=== PATIENT | female | born 1980 | race Caucasian/White ===

== ENCOUNTER 2018-07-25 10:46 | Emergency (ER) | payer MEDICAID ==
[~2018-07-25] VITALS: Ht 165.1 cm; Wt 102.0 kg
[~2018-07-25 10:46] MED LIST: ALBU6.7H INH; NAPR-1154 PO
[2018-07-25] MEDS ORDERED: HYDROcodone/acetaminophen 10/325mg tab PO ONE (12:05)
[2018-07-25 12:27] LABS: BASOPHILS % (AUTO) 0.4 % (0-1); EOSINOPHILS # (AUTO) 0.1 X10'3 (0-0.9); EOSINOPHILS % (AUTO) 1.6 % (0-6); HEMATOCRIT 39.6 % (35.0-45.0); HEMOGLOBIN 13.5 g/dl (12.0-16.0); LYMPHOCYTES # (AUTO) 2.2 X10'3 (1.1-4.8); LYMPHOCYTES % (AUTO) 29.5 % (21-51); MEAN CORPUSCULAR HEMOGLOBIN 29.3 PG (27.0-31.0); MEAN CORPUSCULAR HGB CONC 34.1 % (33.0-36.5); MEAN CORPUSCULAR VOLUME 86.1 FL (78-98); MEAN PLATELET VOLUME 8.4 FL (7.4-10.4); MONOCYTES # (AUTO) 0.6 X10'3 (0-0.9); MONOCYTES % (AUTO) 7.6 % (2-12); NEUTROPHILS # (AUTO) 4.6 X10'3 (1.8-7.7); NEUTROPHILS % (AUTO) 60.9 % (42-75); PLATELET COUNT 314 X10'3 (140-440); RED CELL DISTRIBUTION WIDTH 12.9 % (11.5-14.5); WHITE BLOOD COUNT 7.5 X10'3 (4.5-11.0)
[2018-07-25 13:10] VITALS: BP 117/66
[2018-07-25] MEDS ORDERED: ACET1TAB12 PO (14:30)
== END 2018-07-25 14:47 | disposition home or self-care (01) ==
LOC: ER 10:46
DX: D25.9 Leiomyoma of uterus, unspecified (principal); Z88.8 Allergy status to other drugs, medicaments and biological substances
CPT/HCPCS: 36415; 76856; 85025; 99285

== ENCOUNTER 2019-04-28 18:06 | Emergency (ER) | payer MEDICAID ==
[~2019-04-28] VITALS: Ht 165.1 cm; Wt 108.0 kg
[~2019-04-28 18:06] MED LIST changes: +ACET1TAB12 PO
[2019-04-28] MEDS ORDERED: LORazepam 1 MG tablet PO ONE (18:25)
[2019-04-28 19:18] LABS: BASOPHILS # (AUTO) 0.1 X10'3 (0-0.2); BASOPHILS % (AUTO) 0.7 % (0-1); EOSINOPHILS # (AUTO) 0.2 X10'3 (0-0.9); EOSINOPHILS % (AUTO) 2.4 % (0-6); HEMATOCRIT 38.8 % (35.0-45.0); HEMOGLOBIN 13.3 g/dl (12.0-16.0); LYMPHOCYTES # (AUTO) 3.1 X10'3 (1.1-4.8); LYMPHOCYTES % (AUTO) 40.1 % (21-51); MEAN CORPUSCULAR HEMOGLOBIN 29.6 PG (27.0-31.0); MEAN CORPUSCULAR HGB CONC 34.2 g/dL (33.0-36.5); MEAN CORPUSCULAR VOLUME 86.5 FL (78-98); MEAN PLATELET VOLUME 9.1 FL (7.4-10.4); MONOCYTES # (AUTO) 0.7 X10'3 (0-0.9); MONOCYTES % (AUTO) 8.4 % (2-12); NEUTROPHILS # (AUTO) 3.7 X10'3 (1.8-7.7); NEUTROPHILS % (AUTO) 48.4 % (42-75); PLATELET COUNT 314 X10'3 (140-440); RED BLOOD COUNT 4.49 X10'6 (4.20-5.60); RED CELL DISTRIBUTION WIDTH 12.6 % (11.5-14.5); WHITE BLOOD COUNT 7.7 X10'3 (4.5-11.0)
[2019-04-28 19:41] LABS: ALANINE AMINOTRANSFERASE 66 U/L (12-78); ALBUMIN 3.9 G/DL (3.4-5.0); ALBUMIN/GLOBULIN RATIO 1.1 (1.1-1.5); ALKALINE PHOSPHATASE 59 IU/L (46-116); ANION GAP 7 (8-16); ASPARTATE AMINO TRANSFERASE 32 U/L (10-37); BILIRUBIN,TOTAL 0.4 MG/DL (0.1-1.0); BLOOD UREA NITROGEN 12 MG/DL (7-18); BUN/CREATININE RATIO 17.6 (6.6-38.0); CALCIUM 9.2 MG/DL (8.5-10.1); CHLORIDE 105 MMOL/L (99-107); CREATININE 0.68 MG/DL (0.40-0.90); GLUCOSE 112 MG/DL (70-104); POTASSIUM 4.3 MMOL/L (3.5-5.1); SODIUM 139 MMOL/L (135-145); TOTAL CARBON DIOXIDE 26.6 MMOL/L (24-32); TOTAL PROTEIN 7.5 G/DL (6.4-8.2); eGFR > 90 ML/MIN
[2019-04-28 20:16] VITALS: BP 134/80
== END 2019-04-28 20:18 | disposition home or self-care (01) ==
LOC: ER 18:07
DX: I10 Essential (primary) hypertension (principal); F41.9 Anxiety disorder, unspecified; Z88.8 Allergy status to other drugs, medicaments and biological substances; Z79.899 Other long term (current) drug therapy
CPT/HCPCS: 36415; 71045; 80053; 84484; 85025; 93005; 99284

== ENCOUNTER 2019-07-08 07:20 | Emergency (ER) | payer MEDICAID ==
[~2019-07-08] VITALS: Ht 165.1 cm; Wt 103.0 kg
[~2019-07-08 07:20] MED LIST changes: -ALBU6.7H INH; +ALBU6.7H9 INH
[2019-07-08] MEDS ORDERED: ibuprofen tablet 400 MG TABLET PO ONE (08:05)
[2019-07-08] MEDS ORDERED: acetaminophen 325mg tablet PO ONE (08:05)
[2019-07-08 08:21] LABS: BASOPHILS % (AUTO) 0.5 % (0-1); EOSINOPHILS # (AUTO) 0.2 X10'3 (0-0.9); EOSINOPHILS % (AUTO) 2.2 % (0-6); HEMOGLOBIN 14.2 g/dl (12.0-16.0); LYMPHOCYTES # (AUTO) 2.2 X10'3 (1.1-4.8); LYMPHOCYTES % (AUTO) 25.1 % (21-51); MEAN CORPUSCULAR HEMOGLOBIN 29.4 PG (27.0-31.0); MEAN CORPUSCULAR HGB CONC 33.8 g/dL (33.0-36.5); MEAN CORPUSCULAR VOLUME 86.9 FL (78-98); MEAN PLATELET VOLUME 9.1 FL (7.4-10.4); MONOCYTES # (AUTO) 0.7 X10'3 (0-0.9); MONOCYTES % (AUTO) 8.6 % (2-12); NEUTROPHILS # (AUTO) 5.4 X10'3 (1.8-7.7); NEUTROPHILS % (AUTO) 63.6 % (42-75); PLATELET COUNT 312 X10'3 (140-440); RED BLOOD COUNT 4.83 X10'6 (4.20-5.60); WHITE BLOOD COUNT 8.6 X10'3 (4.5-11.0)
[2019-07-08 09:15] LABS: ALANINE AMINOTRANSFERASE 66 U/L (12-78); ALBUMIN 3.9 G/DL (3.4-5.0); ALKALINE PHOSPHATASE 65 IU/L (46-116); ANION GAP 9 (8-16); ASPARTATE AMINO TRANSFERASE 32 U/L (10-37); BILIRUBIN,TOTAL 0.5 MG/DL (0.1-1.0); BLOOD UREA NITROGEN 14 MG/DL (7-18); BUN/CREATININE RATIO 17.5 (6.6-38.0); CALCIUM 9.2 MG/DL (8.5-10.1); CHLORIDE 106 MMOL/L (99-107); GLUCOSE 113 MG/DL (70-104); SODIUM 140 MMOL/L (135-145); TOTAL CARBON DIOXIDE 25.4 MMOL/L (24-32); TOTAL PROTEIN 7.7 G/DL (6.4-8.2); eGFR 80 ML/MIN
[2019-07-08 09:17] LABS: CLARITY,URINE SLIGHTLY CLOUDY (Clear); COLOR,URINE STRAW (Yellow); GLUCOSE, URINE NEGATIVE (Neg); KETONES,URINE NEGATIVE (Neg); LEUKOCYTE ESTERASE ,URINE NEGATIVE (Neg); NITRITES, URINE NEGATIVE (Neg); OCCULT BLOOD,URINE MODERATE (Neg); PROTEIN,URINE NEGATIVE (Neg); UROBILINOGEN,URINE 0.2 E.U/dL (0.2-1.0)
[2019-07-08 09:19] LABS: UA COLLECTION TYPE CLN CATCH MIDSTREAM
[2019-07-08 09:20] LABS: URINE HCG NEGATIVE (NEG)
[2019-07-08 09:23] LABS: BACTERIA,URINE FEW /HPF (Neg); MUCUS STRANDS NONE SEEN /LPF (Neg); SQUAMOUS EPITHELIAL CELL,UR FEW /LPF (FEW); WBC,URINE 0-4 /HPF (0-4)
[2019-07-08 09:27] LABS: POTASSIUM 4.2 MMOL/L (3.5-5.1)
[2019-07-08 10:28] VITALS: BP 119/69
== END 2019-07-08 10:25 | disposition home or self-care (01) ==
LOC: ER 07:20
DX: R10.30 Lower abdominal pain, unspecified (principal); K92.1 Melena; F41.9 Anxiety disorder, unspecified; Z87.442 Personal history of urinary calculi; Z98.51 Tubal ligation status
CPT/HCPCS: 36415; 80053; 81001; 81025; 85025; 99283

== ENCOUNTER 2019-11-12 17:18 | Emergency (ER) | payer MEDICAID ==
[~2019-11-12] VITALS: Ht 165.1 cm; Wt 105.0 kg
[2019-11-12] MEDS ORDERED: ondansetron/PF 4mg/2ml inj IV ONE (17:40)
[2019-11-12] MEDS ORDERED: morphine 2 MG/ML inj. syringe IV ONE (17:40)
[2019-11-12] MEDS ORDERED: normal saline 1000ML IV soln IVB ONE (17:40)
[2019-11-12 17:50] LABS: URINE HCG NEGATIVE (NEG)
[2019-11-12 17:52] LABS: CLARITY,URINE CLOUDY (Clear); COLOR,URINE YELLOW (Yellow); GLUCOSE, URINE NEGATIVE (Neg); KETONES,URINE NEGATIVE (Neg); LEUKOCYTE ESTERASE ,URINE MODERATE (Neg); NITRITES, URINE NEGATIVE (Neg); OCCULT BLOOD,URINE LARGE (Neg); PROTEIN,URINE 100 mg/dl (Neg); UA COLLECTION TYPE CLN CATCH MIDSTREAM; UROBILINOGEN,URINE 0.2 E.U/dL (0.2-1.0)
[2019-11-12 17:58] LABS: BACTERIA,URINE 3+ /HPF (Neg); MUCUS STRANDS FEW /LPF (Neg); SQUAMOUS EPITHELIAL CELL,UR FEW /LPF (FEW); WBC,URINE 30-50 /HPF (0-4)
[2019-11-12] MEDS ORDERED: iohexol 300mg/ml 100ml inj. ONE (17:59)
--- NOTE | 2019-11-12 18:05 | NUR ---
TO CT VIA WHEELCHAIR
[2019-11-12] MEDS ORDERED: ketorolac trometh. 30mg/ml inj. IV ONE (18:10)
[2019-11-12 18:16] LABS: BASOPHILS # (AUTO) 0.1 X10'3 (0-0.2); BASOPHILS % (AUTO) 0.9 % (0-1); EOSINOPHILS # (AUTO) 0.3 X10'3 (0-0.9); EOSINOPHILS % (AUTO) 2.4 % (0-6); HEMATOCRIT 38.5 % (35.0-45.0); HEMOGLOBIN 13.3 g/dl (12.0-16.0); LYMPHOCYTES % (AUTO) 23.8 % (21-51); MEAN CORPUSCULAR HEMOGLOBIN 29.4 PG (27.0-31.0); MEAN CORPUSCULAR HGB CONC 34.7 g/dL (33.0-36.5); MEAN CORPUSCULAR VOLUME 84.8 FL (78-98); MEAN PLATELET VOLUME 8.3 FL (7.4-10.4); MONOCYTES # (AUTO) 1.1 X10'3 (0-0.9); MONOCYTES % (AUTO) 8.9 % (2-12); NEUTROPHILS # (AUTO) 7.9 X10'3 (1.8-7.7); PLATELET COUNT 359 X10'3 (140-440); RED BLOOD COUNT 4.54 X10'6 (4.20-5.60); RED CELL DISTRIBUTION WIDTH 12.6 % (11.5-14.5); WHITE BLOOD COUNT 12.4 X10'3 (4.5-11.0)
[2019-11-12 18:28] LABS: ALANINE AMINOTRANSFERASE 64 U/L (12-78); ALBUMIN/GLOBULIN RATIO 1.1 (1.1-1.5); ALKALINE PHOSPHATASE 80 IU/L (46-116); ANION GAP 11 (8-16); ASPARTATE AMINO TRANSFERASE 31 U/L (10-37); BILIRUBIN,TOTAL 0.6 MG/DL (0.1-1.0); BLOOD UREA NITROGEN 12 MG/DL (7-18); BUN/CREATININE RATIO 15.6 (6.6-38.0); CALCIUM 9.3 MG/DL (8.5-10.1); CHLORIDE 104 MMOL/L (99-107); CREATININE 0.77 MG/DL (0.40-0.90); GLUCOSE 111 MG/DL (70-104); POTASSIUM 3.7 MMOL/L (3.5-5.1); SODIUM 139 MMOL/L (135-145); TOTAL CARBON DIOXIDE 24.3 MMOL/L (24-32); TOTAL PROTEIN 7.6 G/DL (6.4-8.2); eGFR 84 ML/MIN
[2019-11-12] MEDS ORDERED: CefTRIAXone 2gm/D5W 50ml 50 ML IV ONE (18:45)
[2019-11-12] MEDS ORDERED: SULF1TAB49 PO (18:47)
[2019-11-12] MEDS ORDERED: TRAM50TA2 PO (18:59)
[2019-11-12 19:32] VITALS: BP 129/73
[2019-11-12] MEDS ORDERED: piperacillin/tazo 3.375gm/50ml 50 ML IV ONE (19:35)
[2019-11-12] MEDS ORDERED: vancomycin/NS 1 GM ADD-VANTAGE 250 ML IV ONE (19:35)
== END 2019-11-12 19:34 | disposition home or self-care (01) ==
LOC: ER 17:19
DX: N12 Tubulo-interstitial nephritis, not specified as acute or chronic (principal); F41.9 Anxiety disorder, unspecified; Z87.442 Personal history of urinary calculi; Z98.51 Tubal ligation status; Z88.8 Allergy status to other drugs, medicaments and biological substances; Z79.899 Other long term (current) drug therapy
CPT/HCPCS: 36415; 74177; 80053; 81001; 81025; 85025; 87077; 87088; 87186; 96365; 96375; 99284; J0696; J1885; J2270; J2405; J7030; Q9967

== ENCOUNTER 2020-09-28 18:26 | Emergency (ER) | payer MEDICAID ==
[~2020-09-28] VITALS: Ht 165.1 cm; Wt 100.0 kg
[2020-09-28 18:40] VITALS: BP 128/73
[2020-09-28] MEDS ORDERED: ketorolac tromethamine 15mg/ml inj. IM ONE (21:15)
== END 2020-09-28 21:33 | disposition home or self-care (01) ==
LOC: ER 18:27
DX: R07.89 Other chest pain (principal); M25.519 Pain in unspecified shoulder; F41.9 Anxiety disorder, unspecified; Z87.442 Personal history of urinary calculi; Z87.440 Personal history of urinary (tract) infections; Z85.41 Personal history of malignant neoplasm of cervix uteri; Z98.51 Tubal ligation status; Z88.8 Allergy status to other drugs, medicaments and biological substances; Z79.899 Other long term (current) drug therapy
CPT/HCPCS: 71046; 93005; 96372; 99283; J1885

== ENCOUNTER 2021-03-22 20:33 | Emergency (ER) | payer MEDICAID ==
[~2021-03-22] VITALS: Ht 165.1 cm; Wt 104.0 kg
[2021-03-22 20:37] VITALS: BP 130/76
== END 2021-03-22 22:19 | disposition left against medical advice (07) ==
LOC: ER 20:34
DX: Z98.890 Other specified postprocedural states (principal); Z53.21 Procedure and treatment not carried out due to patient leaving prior to being seen by health care provider

== ENCOUNTER 2021-06-11 18:28 | Emergency (ER) | payer MEDICAID ==
[~2021-06-11] VITALS: Ht 165.1 cm; Wt 104.6 kg
[2021-06-11 19:24] VITALS: BP 139/82
[2021-06-11 20:17] LABS: BASOPHILS # (AUTO) 0.1 X10'3 (0-0.2); BASOPHILS % (AUTO) 0.7 % (0-1); EOSINOPHILS # (AUTO) 0.2 X10'3 (0-0.9); EOSINOPHILS % (AUTO) 2.1 % (0-6); HEMATOCRIT 39.9 % (35.0-45.0); HEMOGLOBIN 13.3 g/dl (12.0-16.0); LYMPHOCYTES # (AUTO) 3.6 X10'3 (1.1-4.8); LYMPHOCYTES % (AUTO) 35.8 % (21-51); MEAN CORPUSCULAR HEMOGLOBIN 29.4 PG (27.0-31.0); MEAN CORPUSCULAR HGB CONC 33.2 g/dL (33.0-36.5); MEAN CORPUSCULAR VOLUME 88.5 FL (78-98); MEAN PLATELET VOLUME 9.7 FL (7.4-10.4); MONOCYTES # (AUTO) 0.8 X10'3 (0-0.9); MONOCYTES % (AUTO) 8.5 % (2-12); NEUTROPHILS # (AUTO) 5.3 X10'3 (1.8-7.7); NEUTROPHILS % (AUTO) 52.9 % (42-75); PLATELET COUNT 132 X10'3 (140-440); RED CELL DISTRIBUTION WIDTH 13.4 % (11.5-14.5); WHITE BLOOD COUNT 9.9 X10'3 (4.5-11.0)
[2021-06-11 20:32] LABS: ALANINE AMINOTRANSFERASE 55 U/L (12-78); ALBUMIN 3.9 G/DL (3.4-5.0); ALBUMIN/GLOBULIN RATIO 1.1 (1.1-1.5); ALKALINE PHOSPHATASE 69 IU/L (46-116); ANION GAP 9 (8-16); ASPARTATE AMINO TRANSFERASE 31 U/L (10-37); BILIRUBIN,TOTAL 0.6 MG/DL (0.1-1.0); BLOOD UREA NITROGEN 11 MG/DL (7-18); BUN/CREATININE RATIO 18.6 (6.6-38.0); CALCIUM 8.9 MG/DL (8.5-10.1); CHLORIDE 104 MMOL/L (99-107); CREATININE 0.59 MG/DL (0.40-0.90); GLUCOSE 111 MG/DL (70-104); SODIUM 139 MMOL/L (135-145); TOTAL CARBON DIOXIDE 25.6 MMOL/L (24-32); TOTAL PROTEIN 7.6 G/DL (6.4-8.2); eGFR > 90 ML/MIN
[2021-06-11 20:40] LABS: MAGNESIUM 2.2 MG/DL (1.5-2.4); TROPONIN I < 0.04 NG/ML (0.0-0.05)
[2021-06-11 20:44] LABS: POTASSIUM 4.6 MMOL/L (3.5-5.1)
--- NOTE | 2021-06-11 22:15 | NUR ---
Patient stated she wants to leave- encouraged we are waiting on rooms to be seen by provider.
--- NOTE | 2021-06-11 23:35 | NUR ---
Called for patient- she appears to have left the waiting room.
== END 2021-06-11 23:36 | disposition left against medical advice (07) ==
LOC: ER 18:29
DX: R07.89 Other chest pain (principal); Z53.21 Procedure and treatment not carried out due to patient leaving prior to being seen by health care provider
CPT/HCPCS: 36415; 71045; 80053; 83735; 83880; 84484; 85025; 93005

== ENCOUNTER 2021-08-28 17:33 | Emergency (ER) | payer MEDICAID ==
[~2021-08-28] VITALS: Ht 162.6 cm; Wt 100.0 kg
[2021-08-28 18:13] LABS: URINE HCG NEGATIVE (NEG)
[2021-08-28 18:17] LABS: ALANINE AMINOTRANSFERASE 68 U/L (12-78); ALBUMIN/GLOBULIN RATIO 1.1 (1.1-1.5); ALKALINE PHOSPHATASE 61 IU/L (46-116); ANION GAP 12 (8-16); ASPARTATE AMINO TRANSFERASE 32 U/L (10-37); BILIRUBIN,TOTAL 0.5 MG/DL (0.1-1.0); BLOOD UREA NITROGEN 13 MG/DL (7-18); BUN/CREATININE RATIO 17.8 (6.6-38.0); CALCIUM 9.1 MG/DL (8.5-10.1); CHLORIDE 102 MMOL/L (99-107); CREATININE 0.73 MG/DL (0.40-0.90); GLUCOSE 100 MG/DL (70-104); POTASSIUM 4.2 MMOL/L (3.5-5.1); SODIUM 140 MMOL/L (135-145); TOTAL CARBON DIOXIDE 26.1 MMOL/L (24-32); TOTAL PROTEIN 7.8 G/DL (6.4-8.2); eGFR 88 ML/MIN
[2021-08-28 18:31] LABS: BASOPHILS % (AUTO) 0.4 % (0-1); EOSINOPHILS # (AUTO) 0.2 X10'3 (0-0.9); EOSINOPHILS % (AUTO) 1.7 % (0-6); HEMATOCRIT 37.4 % (35.0-45.0); LYMPHOCYTES # (AUTO) 3.1 X10'3 (1.1-4.8); LYMPHOCYTES % (AUTO) 31.9 % (21-51); MEAN CORPUSCULAR HEMOGLOBIN 30.3 PG (27.0-31.0); MEAN CORPUSCULAR HGB CONC 34.9 g/dL (33.0-36.5); MEAN CORPUSCULAR VOLUME 86.9 FL (78-98); MEAN PLATELET VOLUME 8.8 FL (7.4-10.4); MONOCYTES # (AUTO) 0.8 X10'3 (0-0.9); MONOCYTES % (AUTO) 8.3 % (2-12); NEUTROPHILS # (AUTO) 5.6 X10'3 (1.8-7.7); NEUTROPHILS % (AUTO) 57.7 % (42-75); PLATELET COUNT 334 X10'3 (140-440); RED CELL DISTRIBUTION WIDTH 12.9 % (11.5-14.5); WHITE BLOOD COUNT 9.8 X10'3 (4.5-11.0)
[2021-08-28 19:12] LABS: CLARITY,URINE SLIGHTLY CLOUDY (Clear); COLOR,URINE YELLOW (Yellow); UA COLLECTION TYPE NON-SPECIFIED
[2021-08-28 19:13] LABS: GLUCOSE, URINE NEGATIVE (Neg); KETONES,URINE NEGATIVE (Neg); LEUKOCYTE ESTERASE ,URINE NEGATIVE (Neg); NITRITES, URINE POSITIVE (Neg); OCCULT BLOOD,URINE LARGE (Neg); PROTEIN,URINE TRACE mg/dl (Neg); UROBILINOGEN,URINE 0.2 E.U/dL (0.2-1.0)
[2021-08-28] MEDS ORDERED: ORPH100T2 PO (19:17)
[2021-08-28] MEDS ORDERED: SULF1TAB45 PO (19:29)
[2021-08-28 19:31] LABS: WBC,URINE 50-100 /HPF (0-4)
[2021-08-28 19:32] LABS: BACTERIA,URINE 3+ /HPF (Neg); SQUAMOUS EPITHELIAL CELL,UR FEW /LPF (FEW)
[2021-08-28] MEDS ORDERED: sulfamethoxazole/trimethoprim DS (800/160mg) tablet PO ONE (19:35)
== END 2021-08-28 19:50 | disposition home or self-care (01) ==
LOC: ER 17:35
DX: N39.0 Urinary tract infection, site not specified (principal); Z87.442 Personal history of urinary calculi; F41.9 Anxiety disorder, unspecified
CPT/HCPCS: 36415; 74176; 80053; 81001; 81025; 85025; 87077; 87088; 87186; 99284

== ENCOUNTER 2022-02-04 13:43 | Emergency (ER) | payer MEDICAID ==
[~2022-02-04] VITALS: Ht 162.6 cm; Wt 99.5 kg
[~2022-02-04 13:43] MED LIST changes: +ORPH100T2 PO
[2022-02-04 14:46] LABS: BASOPHILS % (AUTO) 0.4 % (0-1); EOSINOPHILS # (AUTO) 0.1 X10'3 (0-0.9); EOSINOPHILS % (AUTO) 1.9 % (0-6); HEMATOCRIT 38.3 % (35.0-45.0); HEMOGLOBIN 12.9 g/dl (12.0-16.0); LYMPHOCYTES # (AUTO) 2.5 X10'3 (1.1-4.8); LYMPHOCYTES % (AUTO) 32.6 % (21-51); MEAN CORPUSCULAR HGB CONC 33.7 g/dL (33.0-36.5); MEAN CORPUSCULAR VOLUME 86.1 FL (78-98); MEAN PLATELET VOLUME 8.3 FL (7.4-10.4); MONOCYTES # (AUTO) 0.5 X10'3 (0-0.9); MONOCYTES % (AUTO) 7.1 % (2-12); NEUTROPHILS # (AUTO) 4.4 X10'3 (1.8-7.7); PLATELET COUNT 330 X10'3 (140-440); RED BLOOD COUNT 4.45 X10'6 (4.20-5.60); WHITE BLOOD COUNT 7.6 X10'3 (4.5-11.0)
[2022-02-04 15:05] LABS: ALANINE AMINOTRANSFERASE 46 U/L (12-78); ALBUMIN 3.8 G/DL (3.4-5.0); ALKALINE PHOSPHATASE 56 IU/L (46-116); ANION GAP 9 (8-16); ASPARTATE AMINO TRANSFERASE 16 U/L (10-37); BILIRUBIN,TOTAL 0.7 MG/DL (0.1-1.0); BLOOD UREA NITROGEN 12 MG/DL (7-18); CALCIUM 8.6 MG/DL (8.5-10.1); CHLORIDE 103 MMOL/L (99-107); CREATININE 0.75 MG/DL (0.40-0.90); GLUCOSE 142 MG/DL (70-104); LIPASE 94 U/L (73-393); POTASSIUM 3.9 MMOL/L (3.5-5.1); SODIUM 138 MMOL/L (135-145); TOTAL CARBON DIOXIDE 25.7 MMOL/L (24-32); TOTAL PROTEIN 7.7 G/DL (6.4-8.2); eGFR 86 ML/MIN
[2022-02-04 15:56] VITALS: BP 144/82
[2022-02-04] MEDS ORDERED: ketorolac trometh. 30mg/ml inj. IM ONE (16:15)
[2022-02-04] MEDS ORDERED: HYDROcodone/acetaminophen 10/325mg tab PO ONE (16:15)
[2022-02-04 16:23] LABS: CLARITY,URINE SLIGHTLY CLOUDY (Clear); COLOR,URINE YELLOW (Yellow); GLUCOSE, URINE NEGATIVE (Neg); KETONES,URINE NEGATIVE (Neg); LEUKOCYTE ESTERASE ,URINE NEGATIVE (Neg); NITRITES, URINE NEGATIVE (Neg); OCCULT BLOOD,URINE MODERATE (Neg); PROTEIN,URINE NEGATIVE (Neg); UROBILINOGEN,URINE 0.2 E.U/dL (0.2-1.0)
[2022-02-04 16:42] LABS: URINE HCG NEGATIVE (NEG)
[2022-02-04 16:43] LABS: UA COLLECTION TYPE CLN CATCH MIDSTREAM
[2022-02-04 16:44] LABS: BACTERIA,URINE 1+ /HPF (Neg); MUCUS STRANDS FEW /LPF (Neg); RBC,URINE 0-2 /HPF (0-2); SQUAMOUS EPITHELIAL CELL,UR FEW /LPF (FEW); WBC,URINE 0-4 /HPF (0-4)
== END 2022-02-04 16:35 | disposition home or self-care (01) ==
LOC: ER 13:44
DX: R10.31 Right lower quadrant pain (principal); R10.11 Right upper quadrant pain; Z90.49 Acquired absence of other specified parts of digestive tract; Z87.442 Personal history of urinary calculi; Z87.440 Personal history of urinary (tract) infections; Z87.410 Personal history of cervical dysplasia; Z98.51 Tubal ligation status; Z98.890 Other specified postprocedural states; Z88.8 Allergy status to other drugs, medicaments and biological substances; Z79.899 Other long term (current) drug therapy
CPT/HCPCS: 36415; 80053; 81001; 81025; 83690; 85025; 96372; 99283; J1885

== ENCOUNTER 2022-05-11 18:40 | Emergency (ER) | payer MEDICAID ==
[~2022-05-11] VITALS: Ht 165.1 cm; Wt 217.0 kg
[2022-05-11 20:02] LABS: UA COLLECTION TYPE VOIDED
[2022-05-11 20:03] LABS: CLARITY,URINE CLEAR (Clear); COLOR,URINE YELLOW (Yellow); GLUCOSE, URINE NEGATIVE (Neg); KETONES,URINE NEGATIVE (Neg); LEUKOCYTE ESTERASE ,URINE NEGATIVE (Neg); NITRITES, URINE NEGATIVE (Neg); OCCULT BLOOD,URINE MODERATE (Neg); PROTEIN,URINE NEGATIVE (Neg); UROBILINOGEN,URINE 0.2 E.U/dL (0.2-1.0)
[2022-05-11 20:03] LABS: BASOPHILS % (AUTO) 0.4 % (0-1); EOSINOPHILS # (AUTO) 0.1 X10'3 (0-0.9); EOSINOPHILS % (AUTO) 1.5 % (0-6); HEMATOCRIT 36.4 % (35.0-45.0); HEMOGLOBIN 12.6 g/dl (12.0-16.0); LYMPHOCYTES # (AUTO) 3.3 X10'3 (1.1-4.8); LYMPHOCYTES % (AUTO) 38.3 % (21-51); MEAN CORPUSCULAR HEMOGLOBIN 30.4 PG (27.0-31.0); MEAN CORPUSCULAR HGB CONC 34.6 g/dL (33.0-36.5); MEAN CORPUSCULAR VOLUME 87.6 FL (78-98); MEAN PLATELET VOLUME 7.9 FL (7.4-10.4); MONOCYTES # (AUTO) 0.8 X10'3 (0-0.9); MONOCYTES % (AUTO) 9.4 % (2-12); NEUTROPHILS # (AUTO) 4.4 X10'3 (1.8-7.7); NEUTROPHILS % (AUTO) 50.4 % (42-75); PLATELET COUNT 305 X10'3 (140-440); RED BLOOD COUNT 4.16 X10'6 (4.20-5.60); RED CELL DISTRIBUTION WIDTH 13.1 % (11.5-14.5); WHITE BLOOD COUNT 8.7 X10'3 (4.5-11.0)
[2022-05-11 20:05] LABS: URINE HCG NEGATIVE (NEG)
[2022-05-11 20:15] LABS: BACTERIA,URINE FEW /HPF (Neg); MUCUS STRANDS FEW /LPF (Neg); SQUAMOUS EPITHELIAL CELL,UR MODERATE /LPF (FEW); WBC,URINE NONE SEEN /HPF (0-4)
[2022-05-11 20:17] LABS: ALANINE AMINOTRANSFERASE 39 U/L (12-78); ALBUMIN 3.8 G/DL (3.4-5.0); ALKALINE PHOSPHATASE 49 IU/L (46-116); AMYLASE 24 U/L (25-115); ANION GAP 8 (8-16); ASPARTATE AMINO TRANSFERASE 16 U/L (10-37); BILIRUBIN,TOTAL 0.5 MG/DL (0.1-1.0); BLOOD UREA NITROGEN 10 MG/DL (7-18); CALCIUM 8.7 MG/DL (8.5-10.1); CHLORIDE 105 MMOL/L (99-107); CREATININE 0.77 MG/DL (0.40-0.90); GLUCOSE 122 MG/DL (70-104); LIPASE 146 U/L (73-393); POTASSIUM 4.1 MMOL/L (3.5-5.1); SODIUM 138 MMOL/L (135-145); TOTAL CARBON DIOXIDE 25.1 MMOL/L (24-32); TOTAL PROTEIN 7.7 G/DL (6.4-8.2); eGFR 83 ML/MIN
[2022-05-11] MEDS ORDERED: BISA-78 PO (22:27)
[2022-05-11] MEDS ORDERED: POLY17PO10 PO (22:27)
[2022-05-11 22:39] VITALS: BP 130/77
== END 2022-05-11 22:40 | disposition home or self-care (01) ==
LOC: ER 18:40
DX: R10.12 Left upper quadrant pain (principal); Z88.8 Allergy status to other drugs, medicaments and biological substances; Z90.49 Acquired absence of other specified parts of digestive tract; Z98.51 Tubal ligation status
CPT/HCPCS: 36415; 80053; 81001; 81025; 82150; 83690; 85025; 99283

== ENCOUNTER 2022-10-10 17:54 | Emergency (ER) | payer MEDICAID ==
[~2022-10-10] VITALS: Ht 165.1 cm; Wt 100.0 kg
[~2022-10-10 17:54] MED LIST changes: +ALBU6.7H14 INH; -ALBU6.7H9 INH; +BISA-78 PO
[2022-10-10 18:26] LABS: BASOPHILS % (AUTO) 0.3 % (0-1); EOSINOPHILS # (AUTO) 0.1 X10'3 (0-0.9); EOSINOPHILS % (AUTO) 1.4 % (0-6); HEMATOCRIT 39.5 % (35.0-45.0); HEMOGLOBIN 13.4 g/dl (12.0-16.0); LYMPHOCYTES # (AUTO) 3.2 X10'3 (1.1-4.8); LYMPHOCYTES % (AUTO) 31.8 % (21-51); MEAN CORPUSCULAR HEMOGLOBIN 29.7 PG (27.0-31.0); MEAN CORPUSCULAR VOLUME 87.4 FL (78-98); MEAN PLATELET VOLUME 8.9 FL (7.4-10.4); MONOCYTES % (AUTO) 10.3 % (2-12); NEUTROPHILS # (AUTO) 5.7 X10'3 (1.8-7.7); NEUTROPHILS % (AUTO) 56.2 % (42-75); PLATELET COUNT 337 X10'3 (140-440); RED BLOOD COUNT 4.53 X10'6 (4.20-5.60); RED CELL DISTRIBUTION WIDTH 12.7 % (11.5-14.5); WHITE BLOOD COUNT 10.1 X10'3 (4.5-11.0)
[2022-10-10 18:37] LABS: ALANINE AMINOTRANSFERASE 28 U/L (12-78); ALBUMIN 3.8 G/DL (3.4-5.0); ALKALINE PHOSPHATASE 57 IU/L (46-116); ANION GAP 5 (8-16); ASPARTATE AMINO TRANSFERASE 12 U/L (10-37); BILIRUBIN,TOTAL 0.4 MG/DL (0.1-1.0); BLOOD UREA NITROGEN 8 MG/DL (7-18); BUN/CREATININE RATIO 11.3 (6.6-38.0); CALCIUM 9.1 MG/DL (8.5-10.1); CHLORIDE 104 MMOL/L (99-107); CREATININE 0.71 MG/DL (0.40-0.90); GLUCOSE 140 MG/DL (70-104); MAGNESIUM 1.9 MG/DL (1.5-2.4); POTASSIUM 4.4 MMOL/L (3.5-5.1); SODIUM 135 MMOL/L (135-145); TOTAL CARBON DIOXIDE 25.9 MMOL/L (24-32); TOTAL PROTEIN 7.6 G/DL (6.4-8.2); eGFR > 90 ML/MIN
[2022-10-10 22:45] VITALS: BP 139/77
== END 2022-10-10 23:49 | disposition left against medical advice (07) ==
LOC: ER 17:54
DX: M25.512 Pain in left shoulder (principal); R07.89 Other chest pain; E11.9 Type 2 diabetes mellitus without complications; F41.9 Anxiety disorder, unspecified; Z87.442 Personal history of urinary calculi; Z87.440 Personal history of urinary (tract) infections; Z90.49 Acquired absence of other specified parts of digestive tract; Z98.51 Tubal ligation status; Z98.890 Other specified postprocedural states; Z88.8 Allergy status to other drugs, medicaments and biological substances; Z79.899 Other long term (current) drug therapy
CPT/HCPCS: 36415; 71045; 80053; 83735; 83880; 84484; 85025; 93005; 99285

== ENCOUNTER 2022-12-02 20:58 | Emergency (ER) | payer MEDICAID ==
[~2022-12-02] VITALS: Ht 165.1 cm; Wt 99.5 kg
[2022-12-02] MEDS ORDERED: SULF1TAB49 PO (22:04)
[2022-12-02] MEDS ORDERED: sulfamethoxazole/trimethoprim DS (800/160mg) tablet PO ONE (22:05)
[2022-12-02 22:25] VITALS: BP 135/82
== END 2022-12-02 22:26 | disposition home or self-care (01) ==
LOC: ER 20:59
DX: B07.9 Viral wart, unspecified (principal); M79.675 Pain in left toe(s); E11.9 Type 2 diabetes mellitus without complications; F41.9 Anxiety disorder, unspecified; Z90.49 Acquired absence of other specified parts of digestive tract; Z87.442 Personal history of urinary calculi; Z98.51 Tubal ligation status; Z98.890 Other specified postprocedural states; Z88.8 Allergy status to other drugs, medicaments and biological substances; Z79.899 Other long term (current) drug therapy
CPT/HCPCS: 99283

== ENCOUNTER 2024-01-12 18:08 | Emergency (ER) | payer MEDICAID ==
[~2024-01-12] VITALS: Ht 190.5 cm; Wt 102.3 kg
[~2024-01-12 18:08] MED LIST changes: -ORPH100T2 PO; +ORPH100T4 PO
[2024-01-12 18:11] VITALS: BP 149/91; PULSE 73; RESP 18; TEMP 98; O2SAT 98
[2024-01-12] MEDS ORDERED: CLIN-97 PO (18:43)
== END 2024-01-12 19:12 | disposition home or self-care (01) ==
LOC: ER 18:09
DX: Z88.8 Allergy status to other drugs, medicaments and biological substances (principal); L03.012 Cellulitis of left finger; E11.9 Type 2 diabetes mellitus without complications; Z88.6 Allergy status to analgesic agent; Z90.49 Acquired absence of other specified parts of digestive tract; Z98.51 Tubal ligation status
CPT/HCPCS: 99282; 99283

== ENCOUNTER 2024-01-17 21:57 | Emergency (ER) | payer MEDICAID ==
[~2024-01-17] VITALS: Ht 165.1 cm; Wt 97.7 kg
[~2024-01-17 21:57] MED LIST changes: +CLIN-97 PO
[2024-01-17] MEDS: LIDOcaine 1% 30ml preserv. free vial SQ STA (23:47)
[2024-01-18 00:05] VITALS: BP 132/81; PULSE 70; RESP 16; TEMP 98; O2SAT 98
== END 2024-01-18 03:40 | disposition home or self-care (01) ==
LOC: ER 21:57
DX: L03.012 Cellulitis of left finger (principal); E11.9 Type 2 diabetes mellitus without complications; F41.9 Anxiety disorder, unspecified; Z90.49 Acquired absence of other specified parts of digestive tract; Z98.890 Other specified postprocedural states
CPT/HCPCS: 10060; 99282; A6222; A6402; A6449

== ENCOUNTER 2024-04-05 11:44 | Emergency (ER) | payer MEDICAID ==
[~2024-04-05] VITALS: Ht 165.1 cm; Wt 93.5 kg
[2024-04-05 12:04] VITALS: TEMP 97.2
[2024-04-05 14:35] LABS: BASOPHILS % (AUTO) 0.6 % (0-1); EOSINOPHILS # (AUTO) 0.2 X10'3 (0-0.9); HEMATOCRIT 40.6 % (35.0-45.0); HEMOGLOBIN 13.5 g/dl (12.0-16.0); LYMPHOCYTES # (AUTO) 2.4 X10'3 (1.1-4.8); LYMPHOCYTES % (AUTO) 27.8 % (21-51); MEAN CORPUSCULAR HEMOGLOBIN 30.3 PG (27.0-31.0); MEAN CORPUSCULAR HGB CONC 33.4 g/dL (33.0-36.5); MEAN CORPUSCULAR VOLUME 90.8 FL (78-98); MEAN PLATELET VOLUME 8.4 FL (7.4-10.4); MONOCYTES # (AUTO) 0.7 X10'3 (0-0.9); MONOCYTES % (AUTO) 8.7 % (2-12); NEUTROPHILS # (AUTO) 5.2 X10'3 (1.8-7.7); NEUTROPHILS % (AUTO) 60.9 % (42-75); PLATELET COUNT 329 X10'3 (140-440); RED BLOOD COUNT 4.47 X10'6 (4.20-5.60); WHITE BLOOD COUNT 8.5 X10'3 (4.5-11.0)
[2024-04-05 14:59] LABS: ALANINE AMINOTRANSFERASE 29 U/L (12-78); ALBUMIN 3.8 G/DL (3.4-5.0); ALKALINE PHOSPHATASE 61 IU/L (46-116); ANION GAP 10 (8-16); ASPARTATE AMINO TRANSFERASE 13 U/L (10-37); BILIRUBIN,TOTAL 1.5 MG/DL (0.1-1.0); BLOOD UREA NITROGEN 7 MG/DL (7-18); BUN/CREATININE RATIO 10.9 (10.0-20.0); CALCIUM 9.3 MG/DL (8.5-10.1); CHLORIDE 103 MMOL/L (99-107); CREATININE 0.64 MG/DL (0.40-0.90); GLUCOSE 100 MG/DL (70-104); LIPASE 33 U/L (16-77); POTASSIUM 4.4 MMOL/L (3.5-5.1); SODIUM 139 MMOL/L (135-145); TOTAL PROTEIN 7.8 G/DL (6.4-8.2); eCRCL 102 ML/MIN; eGFR > 90 ML/MIN
[2024-04-05 15:25] LABS: BILIRUBIN,URINE NEGATIVE (Neg); CLARITY,URINE CLEAR (Clear); COLOR,URINE STRAW (Yellow); GLUCOSE, URINE NEGATIVE (Neg); KETONES,URINE NEGATIVE (Neg); LEUKOCYTE ESTERASE ,URINE NEGATIVE (Neg); NITRITES, URINE NEGATIVE (Neg); OCCULT BLOOD,URINE SMALL (Neg); PROTEIN,URINE NEGATIVE (Neg); UROBILINOGEN,URINE 0.2 E.U/dL (0.2-1.0)
[2024-04-05 15:26] LABS: URINE HCG NEGATIVE (NEG)
[2024-04-05 15:33] LABS: UA COLLECTION TYPE CLN CATCH MIDSTREAM
[2024-04-05 15:34] LABS: BACTERIA,URINE FEW /HPF (Neg); SQUAMOUS EPITHELIAL CELL,UR MODERATE /LPF (FEW)
[2024-04-05 15:35] LABS: WBC,URINE 0-4 /HPF (0-4)
[2024-04-05] MEDS: ketorolac trometh. 30mg/ml inj. IM ONE (15:44)
[2024-04-05 16:49] VITALS: BP 101/48; PULSE 65; RESP 14; O2SAT 99
== END 2024-04-05 16:55 | disposition home or self-care (01) ==
LOC: ER 11:45
DX: R10.12 Left upper quadrant pain (principal); E11.9 Type 2 diabetes mellitus without complications; F41.9 Anxiety disorder, unspecified; Z98.51 Tubal ligation status; Z98.890 Other specified postprocedural states; Z85.9 Personal history of malignant neoplasm, unspecified; Z88.8 Allergy status to other drugs, medicaments and biological substances; Z79.1 Long term (current) use of non-steroidal anti-inflammatories (NSAID); Z79.899 Other long term (current) drug therapy; Z79.2 Long term (current) use of antibiotics; Z90.49 Acquired absence of other specified parts of digestive tract; Z87.442 Personal history of urinary calculi
CPT/HCPCS: 36415; 71045; 74176; 80053; 81001; 81025; 83690; 84484; 85025; 93005; 96372; 99285; J1885

== ENCOUNTER 2024-04-07 18:07 | Emergency (ER) | payer MEDICAID ==
[~2024-04-07] VITALS: Ht 165.1 cm; Wt 93.0 kg
[2024-04-07 18:27] VITALS: BP 106/62; PULSE 72; RESP 16; TEMP 98.1; O2SAT 97
[2024-04-07] MEDS ORDERED: CEPH-585 PO (20:04)
[2024-04-07] MEDS ORDERED: DIF150T PO (20:04)
[2024-04-07] MEDS ORDERED: SULF1TAB49 PO (20:04)
== END 2024-04-07 20:38 | disposition home or self-care (01) ==
LOC: ER 18:08
DX: L03.114 Cellulitis of left upper limb (principal); L03.311 Cellulitis of abdominal wall; E11.9 Type 2 diabetes mellitus without complications; Z88.8 Allergy status to other drugs, medicaments and biological substances; Z79.1 Long term (current) use of non-steroidal anti-inflammatories (NSAID); Z79.2 Long term (current) use of antibiotics; Z79.899 Other long term (current) drug therapy; Z90.49 Acquired absence of other specified parts of digestive tract; Z98.51 Tubal ligation status
CPT/HCPCS: 99283

== ENCOUNTER 2024-07-06 02:52 | Emergency (ER) | payer MEDICAID ==
[~2024-07-06] VITALS: Ht 165.1 cm; Wt 84.5 kg
[~2024-07-06 02:52] MED LIST changes: +CEPH-585 PO
[2024-07-06 03:02] VITALS: TEMP 97.6
[2024-07-06 03:16] LABS: BASOPHILS % (AUTO) 0.6 % (0-1); EOSINOPHILS # (AUTO) 0.2 X10'3 (0-0.9); EOSINOPHILS % (AUTO) 3.3 % (0-6); HEMATOCRIT 37.9 % (35.0-45.0); LYMPHOCYTES # (AUTO) 2.6 X10'3 (1.1-4.8); LYMPHOCYTES % (AUTO) 38.1 % (21-51); MEAN CORPUSCULAR HEMOGLOBIN 30.7 PG (27.0-31.0); MEAN CORPUSCULAR HGB CONC 34.2 g/dL (33.0-36.5); MEAN CORPUSCULAR VOLUME 89.7 FL (78-98); MONOCYTES # (AUTO) 0.6 X10'3 (0-0.9); MONOCYTES % (AUTO) 8.3 % (2-12); NEUTROPHILS # (AUTO) 3.4 X10'3 (1.8-7.7); NEUTROPHILS % (AUTO) 49.7 % (42-75); PLATELET COUNT 433 X10'3 (140-440); RED BLOOD COUNT 4.22 X10'6 (4.20-5.60); WHITE BLOOD COUNT 6.9 X10'3 (4.5-11.0)
[2024-07-06] MEDS: normal saline 1000ml 1,000 ML IV ONE (03:17)
[2024-07-06 03:33] LABS: BILIRUBIN,URINE NEGATIVE (Neg); CLARITY,URINE CLEAR (Clear); COLOR,URINE STRAW (Yellow); GLUCOSE, URINE NEGATIVE (Neg); KETONES,URINE NEGATIVE (Neg); LEUKOCYTE ESTERASE ,URINE NEGATIVE (Neg); NITRITES, URINE NEGATIVE (Neg); OCCULT BLOOD,URINE SMALL (Neg); PROTEIN,URINE NEGATIVE (Neg); UROBILINOGEN,URINE 0.2 E.U/dL (0.2-1.0)
[2024-07-06 03:34] LABS: UA COLLECTION TYPE CLN CATCH MIDSTREAM
[2024-07-06 03:41] LABS: BACTERIA,URINE NONE SEEN /HPF (Neg); MUCUS STRANDS NONE SEEN /LPF (Neg); RBC,URINE 0-2 /HPF (0-2); SQUAMOUS EPITHELIAL CELL,UR FEW /LPF (FEW); WBC,URINE 0-4 /HPF (0-4)
[2024-07-06 03:45] LABS: ANION GAP 6 (8-16); BLOOD UREA NITROGEN 8 MG/DL (7-18); BUN/CREATININE RATIO 10.1 (10.0-20.0); CHLORIDE 103 MMOL/L (99-107); CREATININE 0.79 MG/DL (0.40-0.90); GLUCOSE 102 MG/DL (70-104); POTASSIUM 3.8 MMOL/L (3.5-5.1); SODIUM 135 MMOL/L (135-145); TOTAL CARBON DIOXIDE 25.7 MMOL/L (24-32); eCRCL 83 ML/MIN
[2024-07-06 03:46] LABS: ALANINE AMINOTRANSFERASE 18 U/L (12-78); ALBUMIN 3.8 G/DL (3.4-5.0); ALBUMIN/GLOBULIN RATIO 1.2 (1.1-1.5); ALKALINE PHOSPHATASE 42 IU/L (46-116); ASPARTATE AMINO TRANSFERASE 13 U/L (10-37); BILIRUBIN,TOTAL 0.8 MG/DL (0.1-1.0); CALCIUM 8.5 MG/DL (8.5-10.1); eGFR 79 ML/MIN
[2024-07-06 04:30] VITALS: BP 115/70; PULSE 63; RESP 15; O2SAT 100
== END 2024-07-06 04:33 | disposition home or self-care (01) ==
LOC: ER 02:52
DX: R55 Syncope and collapse (principal); G44.82 Headache associated with sexual activity; F41.9 Anxiety disorder, unspecified; E11.9 Type 2 diabetes mellitus without complications; Z88.8 Allergy status to other drugs, medicaments and biological substances; Z79.899 Other long term (current) drug therapy; Z79.2 Long term (current) use of antibiotics; Z79.1 Long term (current) use of non-steroidal anti-inflammatories (NSAID); Z87.442 Personal history of urinary calculi; Z90.49 Acquired absence of other specified parts of digestive tract; Z85.89 Personal history of malignant neoplasm of other organs and systems; Z98.51 Tubal ligation status
CPT/HCPCS: 36415; 80053; 81001; 84484; 85025; 93005; 96360; 99284; J7030

== ENCOUNTER 2024-09-21 10:56 | Emergency (ER) | payer MEDICAID ==
[~2024-09-21] VITALS: Ht 162.6 cm; Wt 81.8 kg
[2024-09-21] MEDS ORDERED: PSEU120T55 PO (11:52)
[2024-09-21] MEDS ORDERED: AMOX-117 PO (11:52)
[2024-09-21] MEDS ORDERED: FLUT16SP2 BOTHNARES (11:52)
[2024-09-21] MEDS ORDERED: DIF150T PO (12:00)
[2024-09-21 12:03] VITALS: BP 126/76; PULSE 78; RESP 18; TEMP 98.5; O2SAT 97
== END 2024-09-21 12:04 | disposition home or self-care (01) ==
LOC: ER 10:57
DX: J32.9 Chronic sinusitis, unspecified (principal); E11.9 Type 2 diabetes mellitus without complications; Z88.8 Allergy status to other drugs, medicaments and biological substances; Z79.899 Other long term (current) drug therapy; Z85.41 Personal history of malignant neoplasm of cervix uteri; Z90.49 Acquired absence of other specified parts of digestive tract; Z98.51 Tubal ligation status; Z98.890 Other specified postprocedural states
CPT/HCPCS: 99283

== ENCOUNTER 2025-02-08 17:27 | Emergency (ER) | payer MEDICAID ==
[~2025-02-08] VITALS: Ht 165.1 cm; Wt 86.0 kg
[~2025-02-08 17:27] MED LIST changes: +FLUT16SP2 BOTHNARES; +PSEU120T55 PO
--- NOTE | 2025-02-08 18:53 | Physician Documentation ---
History of Present Illness ~ Chief Complaint: Wound Stated Complaint: TOE PAIN Time Seen by MD: 18:40 OK to notify your PCP?: Yes Primary Medical Doctor: charity Source: patient Mode of Arrival: POV Exam Limitations: no limitations HPI This is a 44-year-old female who comes in complaining of a wound to the plantar aspect of the pad of the left great toe. She was had this for some time and she was diabetic with the neuropathy. She states that is she went to wound care for the 1st time this past Friday which was five days ago. She says she has not no other appointment on this coming Friday. She says that she was close it in some yellowish looking fluid came out of it which concerned her and prompted her to come to the ER. With the neuropathy she was not complaining of pain. She denies redness or swelling of the rest of the toe a red streaking up the foot. She denies fever or chills. Tetanus within 5 years?: Yes Medication Reconciliation Allergies: Coded Allergies: rizatriptan (Verified Allergy, Unknown, 07/06/24) Scheduled Acetaminophen with Codeine (Tylenol with Codeine #3 Tablet), 1 TAB PO Q6H PRN Albuterol Sulfate (Proventil Hfa), 2 PUFFS INH Q6H Bisacodyl (Dulcolax), 4 TAB PO ONCE Cephalexin*Monohydrate* (Keflex*), 1 CAP PO QID Clindamycin HCL* (Clindamycin HCL*), 1 CAP PO Q6H Fluticasone Propionate (Flonase), 2 SPRAYS BOTHNARES DAILY Naproxen (Naprosyn), 1 TABLET PO BID Orphenadrine Citrate (Norflex), 1 TAB PO Q12H PRN Pseudoephedrine Hcl (Sudafed 12-Hour), 1 TAB PO Q12H Past Medical History Past Medical History: Kidney Stones, UTI, Diabetes, Cervical Cancer/Dysplasia, Anxiety Past Surgical History: abdominal surgery, cholecystectomy, tubal ligation Other Past Surgical History: Hernia repair Alcohol Use: None Drug Use: none Lives with: Spouse Lives In: Home Occupation: employed Physical Exam Vital Signs: Temperature: 97.8, Source: Temporal, Heart Rate: 74, Respiratory Rate: 18, BP: 120/69, Pulse Oximetry: 100, Weight: 86.020 Pulse Oximetry Reflects: adequate oxygenation General Appearance: alert, WD/WN, no apparent distress Respiratory: no respiratory distress Chest: no accessory muscle use Extremities To inspection of the left great toe no obvious erythema or edema of the toe. No fusiform erythema or edema. The patient has a callus of the pad of the toe and in the center of the callus is a round ulcerative lesion. The lesion has a proximally 5 mm in diameter. The area is all firm and dry. No obvious deep tissue fluid collection, fluctuance or expressible purulence. Cap refill is less than 2 seconds and brisk of the tip of the toe and she was full flexion- extension of the toe. Progress Results/Orders Reviewed/noted all lab results: Yes Results/Orders Completed Orders - LINSEY NORRIS Ceftriaxone Im Kit W/Lidocaine (Rocephin (02/08/25 19:40) Sulfamethox/Trimetho. Ds Tab (Septra Ds (02/08/25 19:40) Medications Received in ER Medications (Trade) Dose Ordered Sig/Hiram Route PRN Reason Start Time Stop Time Status Last Admin Dose Admin (Rocephin 1GM IM kit (w/lidocaine diluent)) 1,000 mg ONCE ONCE IM 02/08/25 19:40 02/08/25 19:41 DC 02/08/25 19:50 1,000 MG (Septra DS tab) 2 tab ONCE ONCE PO 02/08/25 19:40 02/08/25 19:41 DC 02/08/25 19:49 2 TAB Vital Signs 02/08/25 17:35 Temp 97.8 Pulse 74 Resp 18 B/P (MAP) 120/69 Pulse Ox 100 Laboratory Tests Test 02/08/25 18:42 White Blood Count 9.0 Red Blood Count 3.97 L Hemoglobin 12.2 Hematocrit 35.3 Mean Corpuscular Volume 88.8 Mean Corpuscular Hemoglobin 30.8 Mean Corpuscular Hemoglobin Concent 34.7 Red Cell Distribution Width 13.5 Platelet Count 361 Mean Platelet Volume 8.3 Neutrophils (%) (Auto) 44.9 Lymphocytes (%) (Auto) 43.4 Monocytes (%) (Auto) 8.8 Eosinophils (%) (Auto) 2.3 Basophils (%) (Auto) 0.6 Neutrophils # (Auto) 4.0 Lymphocytes # (Auto) 3.9 Monocytes # (Auto) 0.8 Eosinophils # (Auto) 0.2 Basophils # (Auto) 0.1 CBC Comment Erythrocyte Sedimentation Rate 13 Sodium Level 140 Potassium Level 3.9 Chloride Level 107 Carbon Dioxide Level 26.8 Anion Gap 6 L Blood Urea Nitrogen 14 Creatinine 0.67 Estimated GFR/1.73 m2 > 90 BUN/Creatinine Ratio 20.9 H Glucose Level 113 H Calcium Level 8.4 L C-Reactive Protein < 0.05 Albumin 3.6 Chemistry Comments EKG/XRAY/CT/US/VASC/MRI Bone/Soft Tissue X-Ray (Ext.) : Interpreted By: self Additional Comment X-ray left great toe three-view interpreted by me: Obvious soft tissue disruption at the plantar aspect of the great toe. No obvious bony erosion. No cutaneous gas. Medical Decision Making Findings The wound is not to concerning appearing as of yet and there were no signs of surrounding infection. I was not able to express with the purulence from the area in the x-rays showed no evidence of bony erosion or osteomyelitis. The patient was CBC and CMP were unremarkable. The toe it was not significantly concerning we are going to get this time. I am going to place the patient on Bactrim DS two tabs twice a day for 10 days and Keflex 500 mg 4 times a day for 10 days. The patient was received Rocephin 1 g IM here and Bactrim DS x2 tabs. She was to follow up with the wound care at a pre-existing appointment with the end of the weekend a primary care physician. Return to the ER for worsening signs of infection or any concerns. Additional Comment Diabetic foot infection. Callus left great toe. Chronic wound left great toe. Rule out osteomyelitis Departure Disposition: HOME / SELF CARE / HOMELESS Impression: Primary Impression: Open wound of left great toe Condition: Stable Discharge Instructions: Diabetes Mellitus and Foot Care Additional Instructions: Take the antibiotics as prescribed and continue to follow up with the wound care. Follow up with the primary care physician next couple of days. If you have any worsening symptoms such as increased pain, redness, swelling or any concerns you should return to the ER. Referrals: NO PRIMARY CARE PROVIDER (PCP) Prescriptions Cephalexin*Monohydrate* (Keflex*) 500 Mg Capsule 1 CAP PO Q6H for 10 Days, #40 CAP Prov: LINSEY NORRIS 02/08/25 Sulfamethoxazole/Trimethoprim (Bactrim Ds Tablet) 800 Mg-160 Mg Tablet 2 TAB PO Q12H for 10 Days, #40 TAB Prov: LINSEY NORRIS 02/08/25 Signature Scribe Signature: No scribe Attestation: The note accurately reflects work and decisions made by me.Linsey IVORY 02/08/25 19:55 LINSEY ONRRIS Feb 08, 2025 18:53
--- NOTE | 2025-02-08 18:58 | RADIOLOGY REPORT ---
Clinical History Chronic Wound To Great Toe Comparison None Without Contrast STACIEHELLEN WICKINA, [id number] TECHNIQUE: 3 views of the big toe. FINDINGS: No evidence of acute displaced fracture or dislocation. The joints are unremarkable. Subcutaneous em physema is seen adjacent to the big toenail corresponding to patient's known chronic wound, clinical correlation to evaluate for ingrowing nail is recommended. Hammertoe deformity of the remaining toes . IMPRESSION: No evidence of acute osseous abnormality. Subcutaneous emphysema is seen adjacent to the big toenail corresponding to patient's known chronic w ound, clinical correlation to evaluate for ingrowing nail is recommended. This report was electronically signed by Basim Lee MD on 02/08/2025 6:55:33 PM.
[2025-02-08 19:02] LABS: BASOPHILS # (AUTO) 0.1 X10'3 (0-0.2); BASOPHILS % (AUTO) 0.6 % (0-1); EOSINOPHILS # (AUTO) 0.2 X10'3 (0-0.9); EOSINOPHILS % (AUTO) 2.3 % (0-6); HEMATOCRIT 35.3 % (35.0-45.0); HEMOGLOBIN 12.2 g/dl (12.0-16.0); LYMPHOCYTES # (AUTO) 3.9 X10'3 (1.1-4.8); LYMPHOCYTES % (AUTO) 43.4 % (21-51); MEAN CORPUSCULAR HEMOGLOBIN 30.8 PG (27.0-31.0); MEAN CORPUSCULAR HGB CONC 34.7 g/dL (33.0-36.5); MEAN CORPUSCULAR VOLUME 88.8 FL (78-98); MEAN PLATELET VOLUME 8.3 FL (7.4-10.4); MONOCYTES # (AUTO) 0.8 X10'3 (0-0.9); MONOCYTES % (AUTO) 8.8 % (2-12); NEUTROPHILS % (AUTO) 44.9 % (42-75); PLATELET COUNT 361 X10'3 (140-440); RED BLOOD COUNT 3.97 X10'6 (4.20-5.60); RED CELL DISTRIBUTION WIDTH 13.5 % (11.5-14.5)
[2025-02-08 19:12] LABS: ALBUMIN 3.6 G/DL (3.4-5.0); ANION GAP 6 (8-16); BLOOD UREA NITROGEN 14 MG/DL (7-18); BUN/CREATININE RATIO 20.9 (10.0-20.0); CALCIUM 8.4 MG/DL (8.5-10.1); CHLORIDE 107 MMOL/L (99-107); CREATININE 0.67 MG/DL (0.40-0.90); GLUCOSE 113 MG/DL (70-104); POTASSIUM 3.9 MMOL/L (3.5-5.1); SODIUM 140 MMOL/L (135-145); TOTAL CARBON DIOXIDE 26.8 MMOL/L (24-32); eCRCL 97 ML/MIN; eGFR > 90 ML/MIN
[2025-02-08 19:14] LABS: C-REACTIVE PROTEIN < 0.05 MG/DL (0.0-0.5)
[2025-02-08] MEDS: sulfamethoxazole/trimethoprim DS (800/160mg) tablet PO ONE (19:49)
[2025-02-08] MEDS: CefTRIAXone 1000mg IM Kit (w/lidocaine diluent) IM ONE (19:50)
[2025-02-08] MEDS ORDERED: CEPH-585 PO (19:54)
[2025-02-08] MEDS ORDERED: SULF1TAB49 PO (19:54)
[2025-02-08 20:13] VITALS: BP 122/70; PULSE 70; RESP 18; TEMP 98.6; O2SAT 99
== END 2025-02-08 20:14 | disposition home or self-care (01) ==
LOC: ER 17:27
DX: S91.102A Unspecified open wound of left great toe without damage to nail, initial encounter (principal); F41.9 Anxiety disorder, unspecified; E11.40 Type 2 diabetes mellitus with diabetic neuropathy, unspecified; Z87.440 Personal history of urinary (tract) infections; Z85.41 Personal history of malignant neoplasm of cervix uteri; Z90.49 Acquired absence of other specified parts of digestive tract; Z98.51 Tubal ligation status; Z98.890 Other specified postprocedural states; X58.XXXA Exposure to other specified factors, initial encounter; Y93.89 Activity, other specified; Y92.89 Other specified places as the place of occurrence of the external cause; Y99.8 Other external cause status
CPT/HCPCS: 36415; 73660; 80048; 85025; 85651; 86140; 96372; 99284; J0696